=== PATIENT | female | born 1960 | race Caucasian/White ===

== ENCOUNTER 2016-11-30 12:49 | Inpatient (IN) | payer OTHER ==
[2016-11-30] MEDS ORDERED: FLUTICASONE NASAL 120 SPRAYS/16 GM MDI EACHNARE PRN (14:58)
[2016-11-30] MEDS ORDERED: ONDANSETRON 4 MG/2 ML VIAL IVP PRN (15:00)
[2016-11-30] MEDS ORDERED: ACETAMINOPHEN 325 MG TAB PO PRN (15:00)
[2016-11-30] MEDS ORDERED: D5W 1/2 NS W/ 20 KCl/L 1,000 ML IV SCH (15:15)
--- NOTE | 2016-11-30 15:34 | GHP ---
[f rep st] HISTORY AND PHYSICAL DATE OF ADMISSION: 11/30/2016 CHIEF COMPLAINT: Diarrhea. HISTORY OF PRESENT ILLNESS: This is a 56-year-old female, undergoing chemotherapy for breast cancer . Her last treatment was November 21, where she received paclitaxel, carboplatin, trastuzumab and per tuzumab, presented to the hospital today with diarrhea. Her diarrhea started on Saturday. Over the past day she has had 19 stools. She is afraid to eat anything since as soon as she eats it goes rig ht through her. She denies any bloody stools. She had some abdominal cramping, but no real pain. She denies any fevers or chills. She had been diagnosed with C difficile and salmonella at the onse t of her chemotherapy on September 20. PAST MEDICAL HISTORY: 1. Breast cancer, on chemotherapy. See HPI. 2. Paroxysmal SVT. 3. Hypertension. 4. Gallstone pancreatitis. PAST SURGICAL HISTORY: Cholecystectomy. HOME MEDICATIONS: Reviewed. Refer to [facility] for details. ALLERGIES: Penicillin, clarithromycin, and erythromycin. SOCIAL HISTORY: She is . Lives at [facility]. She denies any alcohol, tobacco, or illicit drug use. FAMILY HISTORY: Reviewed and noncontributory. REVIEW OF SYSTEMS: Comprehensive 10-point review of systems was done and is negative, except for as mentioned in the HPI. PHYSICAL EXAM: VITAL SIGNS: Blood pressure 116/63, pulse of 86, respiratory rate 16, O2 saturation 92% on room air. Temperature afebrile. GENERAL: No acute distress. HEAD: Normocephalic, atraum atic. EYES: PERRLA. Sclerae anicteric. MOUTH: Dry oral mucosa. NECK: Supple. No lymphadenopa thy. CARDIOVASCULAR: S1, S2. No murmurs, rubs, clicks, gallops, or JVD. No lower extremity edema . PULMONARY: Lungs are clear. No wheezes, rales, or rhonchi. ABDOMEN: Soft, nontender, nondiste nded. No guarding or rebound tenderness. Hyperactive bowel sounds. EXTREMITIES: No clubbing or c yanosis. NEURO: Cranial nerves 2-12 grossly intact. No focal motor or sensory deficits. SKIN: N o rash. She has poor turgor. DIAGNOSTICS: WBC 6.5, hemoglobin 12.9, hematocrit 37.4, platelets 152. Sodium 138, potassium 3.5, chloride 101, CO2 25, BUN 11, creatinine 0.7, glucose 118. AST 49, ALT 70, total protein 6.2. It is noted that these labs were drawn yesterday, recommended at cancer centers. Stool pathogen panel do ne yesterday was positive for salmonella. ASSESSMENT AND PLAN: This is a 56-year-old female, undergoing chemotherapy for breast cancer presen donna with: 1. Severe intractable diarrhea with dehydration with stool positive for salmonella. The differenti al diagnosis for diarrhea includes acute bacterial gastroenteritis from Salmonella versus diarrhea f rom chemotherapy versus multifactorial diarrhea. Plan: The patient will be admitted to the hospital due to her severe symptoms and dehydration. Given her history of Clostridium difficile, she will b e placed on precautions. Will treat her prophylactically with vancomycin 125 mg p.o. b.i.d. Her sa lmonella will be treated with Cipro 500 mg p.o. b.i.d. Will withhold antidiarrhea medicines at this time, but will consider adding if needed. 2. Mild transaminitis. Plan: Will defer further workup to Oncology who will be consulted during t his hospitalization. 3. The patient requests to be full code status. She is at high risk for VTE and will be started on low molecular weight heparin while in the hospital. /[id number]/MODL
[2016-11-30 16:11] LABS: ABSOLUTE NRBC COUNT 0.02 10^3/uL (0-0.01); ADD DIFF? YES; ADD MORPH? NO; ATYPICAL LYMPHOCYTE FLAG 10 (0-99); FRAGMENT RBC FLAG 0 (0-99); HEMATOCRIT 35.2 % (38.0-47.0); HEMOGLOBIN 11.8 g/dL (12.6-16.3); LIPEMIA HEMOLYSIS FLAG 80 (0-99); MEAN CELL HEMOGLOBIN 34.3 pg (27.9-34.1); MEAN CELL HEMOGLOBIN CONCENTR. 33.5 g/dL (32.4-36.7); MEAN CELL VOLUME 102.3 fL (81.5-99.8); MEAN PLATELET VOLUME 10.2 fL (8.7-11.7); NRBC-AUTO% 0.2 % (0.0-0.2); PLATELET CLUMPS FLAG 10 (0-99); PLATELET COUNT 181 10^3/uL (150-400); RED BLOOD CELL COUNT 3.44 10^6/uL (4.18-5.33); RED CELL DISTRIBUTION WIDTH 15.2 % (11.5-15.2)
[2016-11-30 16:14] LABS: ADD SCAN? NO; LEFT SHIFT FLG 100 (0-99)
[2016-11-30 16:41] LABS: ANION GAP 11 mEq/L (8-16); CALCIUM 8.5 mg/dL (8.5-10.4); CARBON DIOXIDE 24 mEq/l (22-31); CHLORIDE 102 mEq/L (97-110); CREATININE 0.7 mg/dL (0.6-1.0); GLOMERULAR FILTRATION RATE > 60; GLUCOSE 83 mg/dL (70-100); POTASSIUM 3.3 mEq/L (3.5-5.2); SODIUM 137 mEq/L (134-144)
[2016-11-30 17:17] LABS: MACROCYTES 1+; PLATELET ESTIMATE ADEQUATE (ADEQ); POLYCHROMASIA 1+
[2016-11-30] MEDS: CIPROFLOXACIN 500 MG TAB PO SCH (19:45)
[2016-11-30] MEDS: VANCOMYCIN 125 MG/2.5 ML UDL PO SCH (22:10)
[2016-12-01 05:33] LABS: ADD DIFF? YES; ADD MORPH? NO; ADD SCAN? NO; ATYPICAL LYMPHOCYTE FLAG 10 (0-99); FRAGMENT RBC FLAG 0 (0-99); HEMATOCRIT 32.7 % (38.0-47.0); HEMOGLOBIN 10.9 g/dL (12.6-16.3); LEFT SHIFT FLG 70 (0-99); LIPEMIA HEMOLYSIS FLAG 80 (0-99); MEAN CELL HEMOGLOBIN 34.1 pg (27.9-34.1); MEAN CELL HEMOGLOBIN CONCENTR. 33.3 g/dL (32.4-36.7); MEAN CELL VOLUME 102.2 fL (81.5-99.8); MEAN PLATELET VOLUME 9.8 fL (8.7-11.7); PLATELET CLUMPS FLAG 0 (0-99); PLATELET COUNT 146 10^3/uL (150-400); RED CELL DISTRIBUTION WIDTH 15.1 % (11.5-15.2)
[2016-12-01 05:59] LABS: ALANINE AMINOTRANSFERASE 50 IU/L (9-52); ALBUMIN 2.9 g/dL (3.5-5.0); ALKALINE PHOSPHATASE 99 IU/L (38-126); ANION GAP 7 mEq/L (8-16); ASPARTATE AMINOTRANSFERASE 33 IU/L (14-46); BILIRUBIN,TOTAL 0.3 mg/dL (0.1-1.4); CALCIUM 8.3 mg/dL (8.5-10.4); CARBON DIOXIDE 26 mEq/l (22-31); CHLORIDE 106 mEq/L (97-110); CREATININE 0.6 mg/dL (0.6-1.0); GLOMERULAR FILTRATION RATE > 60; GLUCOSE 124 mg/dL (70-100); POTASSIUM 3.4 mEq/L (3.5-5.2); SODIUM 139 mEq/L (134-144); TOTAL PROTEIN 5.2 g/dL (6.3-8.2)
[2016-12-01 06:14] LABS: MACROCYTES 1+; PLATELET ESTIMATE DECREASED (ADEQ)
[2016-12-01] MEDS ORDERED: HYDROCHLOROTHIAZIDE 12.5 MG CAP PO SCH (09:00)
[2016-12-01] MEDS ORDERED: ALISKIREN HEMIFUMARATE 150 MG TAB PO SCH (09:00)
[2016-12-01] MEDS ORDERED: POTASSIUM CL 20 MEQ/15 ML UDCUP PO ONE (09:11)
[2016-12-01] MEDS: DIGOXIN 250 MCG TAB PO SCH (09:24)
[2016-12-01] MEDS: VANCOMYCIN 125 MG/2.5 ML UDL PO SCH ×2 (09:24→20:24)
[2016-12-01] MEDS: CIPROFLOXACIN 500 MG TAB PO SCH ×2 (09:24→20:24)
[2016-12-01] MEDS: FLUoxetine 20 MG CAP PO SCH (09:24)
[2016-12-01] MEDS: ENOXAPARIN 40 MG/0.4 ML SYR SC SCH (09:25)
--- NOTE | 2016-12-01 09:50 | HOSPPROG ---
Hospitalist Progress Note Assessment/Plan: Ms. Janet Delarosa is a 56 yo F w/ hx of breast CA on chemotherapy, SVT, and HTN presenting with severe diarrhea with PCR positive for Salmonella. 1. Severe intractable diarrhea with dehydration and stool PCR positive for Salmonella - Symptoms improved after starting Ciprofloxacin 500 mg BID, recommended course of 14 days. C. Diff negative this admission but last positive in September, so will continue Vanco PO 125 mg BID for ppx for 7 days past end date of ciprofloxacin. Will d/c mIVF noting now tolerating PO. 2. Hypokalemia - related to above, replete PRN. 3. Breast CA - Last chemotherapy November 21, will have oncology see today. 4. HTN - Continue Aliskerin, HCTZ 5. Hx SVT - Continue digoxin Diet - Regular Code - Full Ppx - LMWH Dispo - Anticipate d/c tomorrow Subjective: Patient notes improved symptoms this morning, with stool frequency decreased from prior after only one dose of medication. She denies significant abdominal pain, fever, palpitations, or leg swelling. Objective: Vital Signs Temp Pulse Resp BP Pulse Ox 37.1 C 76 16 118/70 90 L 12/01/16 07:59 12/01/16 09:24 12/01/16 07:59 12/01/16 09:19 12/01/16 07:59 Laboratory Results 12/01/16 05:20 12/01/16 05:20 11/30/16 12/01/16 12/02/16 05:59 05:59 05:59 Intake Total 1878 Balance 1878 - Pending Discharge Pending Discharge Within 24 Hours: Yes Pending Discharge Within 48 Hours: No Pending Discharge Date: 12/02/16 Pending Discharge Time: 11:00 - Physical Exam Constitutional: no apparent distress Ears, Nose, Mouth, Throat: moist mucous membranes Cardiovascular: regular rate and rhythym, no murmur, rub, or gallop, No edema Respiratory: no respiratory distress, no rales or rhonchi, clear to auscultation Gastrointestinal: soft, non-tender abdomen, No guarding, No rebound Skin: warm Neurologic: AAOx3, CN II-XII Intact Psychiatric: interacting appropriately ICD10 Worksheet Patient Problems: Problems Problem Status Onset C. difficile diarrhea Acute ~09/27/16
[2016-12-01] MEDS: TEKTURNA HCT PO SCH (11:25)
--- NOTE | 2016-12-01 12:43 | GCON ---
[f rep st] CONSULTATION NEW PATIENT CONSULTATION REFERRING PHYSICIAN: Dr. Baxter REASON FOR CONSULTATION: Patient known to Dr. Ade Orellana, receiving neoadjuvant chemotherapy for pattie ast cancer, admitted for diarrhea. HISTORY OF PRESENT ILLNESS: The patient is a 56-year-old postmenopausal woman, currently under the care of my partner, Esteban Henderson, for HER2 positive, stage IIA left breast cancer. She is current ly undergoing therapy with Taxotere, carboplatin, and Herceptin plus pertuzumab. She received cycle 4 on 11/21/2016. She has had diarrhea throughout therapy which mostly was thought to be caused fro m the pertuzumab-containing regimen; however, she also has been diagnosed with salmonella and C diff in the past. Over the past week, she has been hydrated several times and was having up to 19-20 st ools a day. She was admitted to the hospital yesterday for observation and management. She denies any fevers or chills. She is reporting abdominal cramping. Denies any blood in her stools. She no longer is having any dizziness. She has been treated with IV hydration and is currently not on any antidiarrheal's, as yesterday she was discovered to have recurrent salmonella. C diff was negative this admission but positive in September. She is feeling better this morning after the initiation of antibiotics. LABORATORY DATA: White blood cell count of 10.1, hemoglobin 10.9, hematocrit 32.7, platelet count o f 146. CMP today was reviewed and actually has normalized; total protein 5.2 and albumin 2.9. As an aside she is responding well to neoadjuvant chemotherapy, and surgery is planned for January 2017. PAST MEDICAL HISTORY: 1. PSVT. She is on digoxin for rate control. 2. Heart murmur since she was a child. 3. Hypertension. 4. KEILA; restarted CPAP 04/2016. PREVIOUS SURGERIES: Cholecystectomy and foot surgery. SOCIAL HISTORY: Nonsmoker. REVIEW OF SYSTEMS: As per HPI; otherwise negative. FAMILY HISTORY: No Evangelical ancestry. Mother had breast cancer at the age 78 and is alive at 80. Fa ther at 67 and had prostate cancer. No other family history of malignancy. PHYSICAL EXAMINATION: VITAL SIGNS: Blood pressure 117/59, pulse of 81, respiration rate 18, O2 sat 92%, temperature 36.9. GENERAL: Not in acute distress. Slightly fatigued appearing. HEENT: Ani cteric. She has alopecia. NECK: Supple. RESPIRATORY: Breathing comfortably. LUNGS: Clear to a uscultation. CARDIOVASCULAR: Regular rate and rhythm. BREASTS: Not examined. ABDOMEN: Soft, no ntender. Has hyperactive bowel sounds. LOWER EXTREMITIES: No edema. LABORATORY DATA: Have been reviewed above. CLINICAL IMPRESSION AND PLAN: A 56-year-old postmenopausal woman with HER2 positive, stage IIA [place] st cancer, currently on neoadjuvant Taxotere, carboplatin, and Herceptin plus pertuzumab, who presen alin with diarrhea. 1. Diarrhea: History of Clostridium difficile and salmonella. PCR came back positive for salmonel la again yesterday. Appreciate Internal Medicine's help. On antibiotics to cover both Clostridium difficile and salmonella, and plan to monitor for the next 24 hours. Patient reports diarrhea slowl y improving. Do not want to give any antidiarrheal's. Agree with observation and can discharge nelson e tomorrow if feeling better. Her diarrhea may also be multifactorial in the setting of chemotherap y, specifically pertuzumab, and once infection is cleared will continue antidiarrheal's. 2. Invasive ductal carcinoma of the left breast, ER/NC positive and HER2 positive, undergoing neoad juvant chemotherapy and will likely undergo surgery in January 2017. She is having a good clinica l response. Will continue to follow along while patient is in the hospital. Can follow up with Dr. Ade Orellana or one of her partners on discharge. /[id number]/MODL
[2016-12-01] MEDS: D5W 1/2 NS W/ 20 KCl/L 1,000 ML IV SCH (19:02)
[2016-12-02] MEDS: D5W 1/2 NS W/ 20 KCl/L 1,000 ML IV SCH (06:12)
[2016-12-02 06:24] LABS: HEMATOCRIT 31.7 % (38.0-47.0); HEMOGLOBIN 10.6 g/dL (12.6-16.3); MEAN CELL HEMOGLOBIN 34.5 pg (27.9-34.1); MEAN CELL HEMOGLOBIN CONCENTR. 33.4 g/dL (32.4-36.7); MEAN CELL VOLUME 103.3 fL (81.5-99.8); RED BLOOD CELL COUNT 3.07 10^6/uL (4.18-5.33); RED CELL DISTRIBUTION WIDTH 15.2 % (11.5-15.2)
[2016-12-02 06:41] LABS: ANION GAP 10 mEq/L (8-16); CALCIUM 8.2 mg/dL (8.5-10.4); CARBON DIOXIDE 26 mEq/l (22-31); CHLORIDE 105 mEq/L (97-110); CREATININE 0.6 mg/dL (0.6-1.0); GLOMERULAR FILTRATION RATE > 60; GLUCOSE 105 mg/dL (70-100); POTASSIUM 3.6 mEq/L (3.5-5.2); SODIUM 141 mEq/L (134-144)
[2016-12-02 09:07] VITALS: BP 121/68; PULSE 75
[2016-12-02] MEDS: CIPROFLOXACIN 500 MG TAB PO SCH (09:07)
[2016-12-02] MEDS: VANCOMYCIN 125 MG/2.5 ML UDL PO SCH (09:07)
[2016-12-02] MEDS: FLUoxetine 20 MG CAP PO SCH (09:07)
[2016-12-02] MEDS: ENOXAPARIN 40 MG/0.4 ML SYR SC SCH ×2 (09:08→09:14)
[2016-12-02] MEDS: DIGOXIN 250 MCG TAB PO SCH (09:08)
[2016-12-02] MEDS: TEKTURNA HCT PO SCH (09:09)
[2016-12-02 09:53] VITALS: RESP 16; TEMP 98.1; O2SAT 94
--- NOTE | 2016-12-02 10:41 | SOAPPROG ---
SOAP Progress Note Assessment/Plan: Assessment/Plan: 56 yo woman w Stage IIA breast cancer undergoing neoadj chemo w [facility]; recently completed C4 She was admitted w sever diarrhea and volume depletion 1. Diarrhea - PCR positive for salmonella and hx of C.diff on cipro and vanc diarrhea improving pt feeling better think ok to d/c today ok to re-start anti-diarrheals in a few days (she has chemo related diarrhea as well) f/u in [facility] as outpt 2. Hx of C.diff - on po vanc 3. Breast cancer - having a good clinical response surgery planned for Jan 2017 F/u as outpt at [facility] 12/02/16 10:37 12/02/16 10:38 12/02/16 10:41 Subjective: Reports feeling much better today states stool is now more formed denies pain or fever Objective: Vital Signs Temp Pulse Resp BP Pulse Ox 36.7 C 75 16 121/68 H 94 12/02/16 09:51 12/02/16 09:08 12/02/16 09:51 12/02/16 09:05 12/02/16 09:51 Laboratory Results 12/02/16 06:20 12/02/16 06:20 12/01/16 12/02/16 12/03/16 05:59 05:59 05:59 Intake Total 1878 2493 Balance 1878 2493 Gen - NAD HEENT - anicteric CV - RRR Abd - soft, BS+ Ext - no sig edema ICD10 Worksheet Patient Problems: Problems Problem Status Onset C. difficile diarrhea Acute ~09/27/16
--- NOTE | 2016-12-02 16:01 | GDS ---
[f rep st] DISCHARGE SUMMARY DISCHARGE DIAGNOSES: 1. Salmonella gastroenteritis. 2. Previous colonization of Clostridium difficile. 3. Stage IIA left breast cancer, undergoing chemotherapy. 4. Paroxysmal supraventricular tachycardia. 5. Hypertension. 6. Obstructive sleep apnea. HISTORY: This is a 56-year-old female who presented with worsening diarrhea. She had a previous hi story of salmonella a couple months ago, and tested positive for salmonella here. She also tested p ositive for Clostridium difficile 2 months ago as well. Her son has a pet snake, which we think omar t may be causing her recurrent salmonella. HOSPITAL COURSE: The patient was admitted and started on Cipro. She was also started on vancomycin to prevent C difficile colitis in the setting of quinolone antibiotics. Her diarrhea improved, and she was willing to go home. She will complete 2 weeks of Cipro, and then 3 weeks of twice daily do sing of vancomycin. I believe Infectious Disease will also discuss the case further with Dr. Orellana ne xt week. TIME SPENT: Greater than 30 minutes was spent on discharge. /[id number]/MODL
== END 2016-12-02 12:43 | disposition home or self-care (01) | DRG 372 ==
LOC: F1N 13:14 → EDSTATUS 13:20
PROVIDERS: ADMIT Internal Medicine Pulmonary Disease; ATTEND Internal Medicine
DX: A02.0 Salmonella enteritis (principal); I47.1 Supraventricular tachycardia; I10 Essential (primary) hypertension; G47.33 Obstructive sleep apnea (adult) (pediatric); C50.412 Malignant neoplasm of upper-outer quadrant of left female breast; C77.3 Secondary and unspecified malignant neoplasm of axilla and upper limb lymph nodes; Z17.0 Estrogen receptor positive status [ER+]; Z79.899 Other long term (current) drug therapy
CPT/HCPCS: J1642; J1650

== ENCOUNTER → 2017-01-09 | Outpatient (CLI) | payer OTHER | LOC: BRMIMAGING 09:30 | PROVIDERS: ATTEND Nurse Practitioner | DX: Z13.820 Encounter for screening for osteoporosis (principal); Z78.0 Asymptomatic menopausal state; Z82.62 Family history of osteoporosis; Z85.3 Personal history of malignant neoplasm of breast ==

== ENCOUNTER → 2017-04-16 | Outpatient (CLI) | payer OTHER | LOC: FIMAGING 12:13 | PROVIDERS: ATTEND Internal Medicine Hematology & Oncology | DX: N63.20 Unspecified lump in the left breast, unspecified quadrant (principal); Z90.12 Acquired absence of left breast and nipple ==